=== PATIENT | male | born 1975 | race Caucasian/White ===

== ENCOUNTER 2025-04-27 17:58 | Emergency (ER) | payer OTHER ==
[~2025-04-27] VITALS: Ht 177.8 cm; Wt 74.8 kg
[2025-04-27] MEDS ORDERED: Ketorolac Tromethamine 15mg Vial IM ONE (20:30)
== END 2025-04-27 21:10 | disposition home or self-care (01) ==
LOC: ER 17:58
DX: S92.512A Displaced fracture of proximal phalanx of left lesser toe(s), initial encounter for closed fracture (principal); E10.9 Type 1 diabetes mellitus without complications; W22.8XXA Striking against or struck by other objects, initial encounter; Z88.0 Allergy status to penicillin
CPT/HCPCS: 73660; 99283-25; J1885